=== PATIENT | female | born 1970 ===

== ENCOUNTER 2017-01-08 10:51 | Emergency (ER) | payer OTHER ==
[2017-01-08 10:57] VITALS: BP 157/78; PULSE 82; RESP 18; TEMP 99; O2SAT 100
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
== END 2017-01-08 15:02 | disposition home or self-care (01) ==
LOC: H.ER 10:51
DX: S80.01XA Contusion of right knee, initial encounter (principal); M79.601 Pain in right arm; R51 Headache; V43.62XA Car passenger injured in collision with other type car in traffic accident, initial encounter; Y92.410 Unspecified street and highway as the place of occurrence of the external cause